=== PATIENT | female | born 1990 | race Two or more races ===

== ENCOUNTER 2021-07-17 08:25 | Outpatient (CLI) | payer OTHER | END 2021-07-17 08:37 | disposition home or self-care (01) | LOC: RX STUDY 08:25 | PROVIDERS: ATTEND Obstetrics & Gynecology Reproductive Endocrinology | DX: N70.11 Chronic salpingitis (principal) ==

== ENCOUNTER 2022-03-27 10:46 | Outpatient (CLI) | payer OTHER | END 2022-03-27 11:26 | disposition home or self-care (01) | LOC: NST 10:46 | PROVIDERS: ATTEND Obstetrics & Gynecology | DX: Z34.83 Encounter for supervision of other normal pregnancy, third trimester (principal) ==

== ENCOUNTER 2022-04-15 14:12 | Outpatient (CLI) | payer OTHER | END 2022-04-15 17:00 | disposition home or self-care (01) | LOC: NST 14:12 | PROVIDERS: ATTEND Obstetrics & Gynecology Maternal & Fetal Medicine | DX: Z34.83 Encounter for supervision of other normal pregnancy, third trimester (principal) ==

== ENCOUNTER 2022-04-23 15:13 | Outpatient (CLI) | payer OTHER | END 2022-04-23 16:03 | disposition home or self-care (01) | LOC: NST 15:13 | PROVIDERS: ATTEND Obstetrics & Gynecology Gynecology | DX: Z34.83 Encounter for supervision of other normal pregnancy, third trimester (principal) ==

== ENCOUNTER 2022-05-01 11:44 | Inpatient (IN) | payer OTHER ==
[~2022-05-01] VITALS: Ht 160 cm; Wt 107.0 kg
[2022-05-01] MEDS ORDERED: PRENATABS RX T1 EACH PO (13:17)
[2022-05-01] MEDS ORDERED: SYNTHROID88 MCG PO (13:17)
[2022-05-01] MEDS ORDERED: LABETALOL HCL200 MG PO (13:18)
[2022-05-01] MEDS ORDERED: ASA81 MG PO (13:18)
[2022-05-02] MEDS ORDERED: TRANDATE300 MG PO (10:09)
== END 2022-05-02 10:19 | disposition home or self-care (01) | DRG 833 ==
LOC: LDR 11:44
PROVIDERS: ADMIT Obstetrics & Gynecology; ATTEND Obstetrics & Gynecology
PROC: 4A1HXCZ Monitoring of Products of Conception, Cardiac Rate, External Approach (ICD-10-PCS; principal; 2022-05-01)
DX: O10.913 Unspecified pre-existing hypertension complicating pregnancy, third trimester (principal); Z3A.36 36 weeks gestation of pregnancy; Z20.822 Contact with and (suspected) exposure to COVID-19

== ENCOUNTER 2022-05-05 12:02 | Outpatient (CLI) | payer OTHER ==
[~2022-05-05 12:02] MED LIST: ASA81 MG PO; LABETALOL HCL200 MG PO; PRENATABS RX T1 EACH PO; SYNTHROID88 MCG PO; TRANDATE300 MG PO
== END 2022-05-05 12:46 | disposition home or self-care (01) ==
LOC: NST 12:02
PROVIDERS: ATTEND Obstetrics & Gynecology Maternal & Fetal Medicine
DX: Z34.83 Encounter for supervision of other normal pregnancy, third trimester (principal)

== ENCOUNTER 2022-05-08 09:19 | Outpatient (CLI) | payer OTHER | END 2022-05-08 09:55 | disposition home or self-care (01) | LOC: NST 09:19 | PROVIDERS: ATTEND Obstetrics & Gynecology Maternal & Fetal Medicine | DX: Z34.83 Encounter for supervision of other normal pregnancy, third trimester (principal) ==

== ENCOUNTER 2022-05-12 09:35 | Outpatient (CLI) | payer OTHER | END 2022-05-12 10:36 | disposition home or self-care (01) | LOC: NST 09:35 | PROVIDERS: ATTEND Obstetrics & Gynecology Maternal & Fetal Medicine | DX: Z34.83 Encounter for supervision of other normal pregnancy, third trimester (principal) ==

== ENCOUNTER 2022-05-15 09:17 | Outpatient (CLI) | payer OTHER | END 2022-05-15 10:02 | disposition home or self-care (01) | LOC: NST 09:17 | PROVIDERS: ATTEND Obstetrics & Gynecology Maternal & Fetal Medicine | DX: Z34.83 Encounter for supervision of other normal pregnancy, third trimester (principal) ==

== ENCOUNTER 2022-05-18 09:32 | Outpatient (CLI) | payer OTHER ==
[2022-05-19] MEDS ORDERED: DIALYVITE 800-1 EACH PO (15:24)
[2022-05-19] MEDS ORDERED: VITAMIN D PO ×2 (15:25→15:26)
== END 2022-05-18 10:05 | disposition home or self-care (01) ==
LOC: NST 09:32
PROVIDERS: ATTEND Obstetrics & Gynecology Maternal & Fetal Medicine
DX: Z34.83 Encounter for supervision of other normal pregnancy, third trimester (principal)

== ENCOUNTER 2022-05-19 12:58 | Inpatient (IN) | payer OTHER ==
[~2022-05-19] VITALS: Ht 160 cm; Wt 3.2 kg
[2022-05-19] MEDS ORDERED: DIALYVITE 800-1 EACH PO (15:24)
[2022-05-19] MEDS ORDERED: VITAMIN D PO ×2 (15:25→15:26)
== END 2022-05-23 15:34 | disposition home or self-care (01) | DRG 787 ==
LOC: LDR 12:58 → O/R 05-20 14:41 → OB/GYN 05-20 16:15
PROVIDERS: Obstetrics & Gynecology; ADMIT Obstetrics & Gynecology Maternal & Fetal Medicine; ATTEND Obstetrics & Gynecology Maternal & Fetal Medicine
PROC: 4A1HXCZ Monitoring of Products of Conception, Cardiac Rate, External Approach (ICD-10-PCS; 2022-05-19)
PROC: 10D00Z1 Extraction of Products of Conception, Low, Open Approach (ICD-10-PCS; principal; 2022-05-20 13:15)
DX: O62.0 Primary inadequate contractions (principal); O10.92 Unspecified pre-existing hypertension complicating childbirth; Z3A.39 39 weeks gestation of pregnancy; Z37.0 Single live birth

== ENCOUNTER 2024-09-11 09:25 | Outpatient (CLI) | payer OTHER ==
[2024-09-11 08:58] VITALS: BP 133/78
[~2024-09-11 09:25] MED LIST changes: +DIALYVITE 800-1 EACH PO; +VITAMIN D PO
[2024-09-11] MEDS ORDERED: RINGERS SOLUTION,LACTATED 1,000 ML IV SCH (09:30)
[2024-09-11 10:17] LABS: BASO % 0.3 % (0.1-1.2); EOS # 0.35 (0.04-0.54); EOS % 3.6 % (0.7-7.0); LYMPH # 1.82 (1.18-3.74); LYMPH % 18.7 % (19.3-53.1); MEAN PLATELET VOLUME 10.90 fl (9.4-12.4); MONO # 0.82 (0.24-0.82); MONO % 8.4 % (4.7-12.5); NEUT # 6.64 (1.56-6.13); NEUT % 68.3 % (34.0-71.1); RED CELL DISTRIBUTION WIDTH 14.3 % (11.6-14.4)
[2024-09-11 10:21] LABS: URINE APPEARANCE Cloudy; URINE BACTERIA 301.0 uL (0.0-1933); URINE BILIRRUBIN Negative (NEGATIVE); URINE BLOOD Negative; URINE COLOR Yellow; URINE EPITHELIAL CELLS 57.3 uL (0.0-38.8); URINE GLUCOSE Negative (NEGATIVE); URINE KETONE Negative (NEGATIVE); URINE LEUKOCYTE Negative; URINE NITRATE Negative; URINE PROTEIN Negative (NEGATIVE); URINE RBC 3.8 uL (0.0-20.8); URINE UROBILINOGEN 0.2 E.U./dl; URINE WBC 8.7 uL (0.0-23.2)
[2024-09-11 10:22] LABS: URINE CAST 0.00 uL (0.0-1.40)
[2024-09-11 11:17] LABS: ALT/SGPT 18.0 U/L (12-78); AST/SGOT 12.0 U/L (15-37); BILIRUBIN TOTAL 0.25 mg/dL (0.3-1.2); BUN CREA RATIO 13.0 (7.0-25.0); CREATININE SERUM 0.47 mg/dL (0.55-1.02); GFR 153.56; GLOBULINA 3.6 G/DL (2.4-3.5); GLUCOSE FASTING 105.0 mg/dL (65-100); OSMOLALITY SERUM 287.0 MOSM/KG (275-295)
[2024-09-11 12:22] VITALS: BP 145/84
[2024-09-11 15:20] VITALS: BP 133/86
[2024-09-11] MEDS ORDERED: LABETALOL HCL 200 MG TABLET PO SCH (17:00)
[2024-09-11 20:01] VITALS: BP 126/81
[2024-09-11 23:37] VITALS: BP 131/85
[2024-09-12 03:14] VITALS: BP 127/76
[2024-09-12] MEDS ORDERED: LEVOTHYROXINE SODIUM 100 MCG TABLET PO SCH (06:00)
[2024-09-12 06:24] VITALS: BP 127/87
[2024-09-12] MEDS ORDERED: PNV,CALCIUM 72/IRON/FOLIC ACID 1 TAB TABLET PO SCH (09:00)
[2024-09-12 09:30] VITALS: BP 127/87
== END 2024-09-12 09:47 | disposition home or self-care (01) ==
LOC: OBS/DEL 09:25
PROVIDERS: Obstetrics & Gynecology; ATTEND Obstetrics & Gynecology Gynecology
DX: O13.3 Gestational [pregnancy-induced] hypertension without significant proteinuria, third trimester (principal); Z3A.32 32 weeks gestation of pregnancy

== ENCOUNTER 2024-10-03 13:33 | Outpatient (CLI) | payer OTHER | END 2024-10-03 14:17 | disposition home or self-care (01) | LOC: NST 13:33 | PROVIDERS: ATTEND Obstetrics & Gynecology Gynecology | DX: Z34.83 Encounter for supervision of other normal pregnancy, third trimester (principal) ==